=== PATIENT | female | born 1980 | race Caucasian/White ===

== ENCOUNTER 2017-02-25 14:23 | Emergency (ER) | payer BC ==
[~2017-02-25] VITALS: Ht 160 cm; Wt 120.3 kg
[~2017-02-25 14:23] MED LIST: ATIVAN1 MG PO; BENTYL10 MG PO; LORAZEPAM0.5 MG; LORAZEPAM0.5 MG PO; NOHOMEMEDS; PAXIL20 MG PO; PROTONIX40 MG PO; SERTRALINE HCL100 MG; SERTRALINE HCL100 MG PO
[2017-02-25 15:47] LABS: HEMATOCRIT 38.2 % (36.0-46.0); HEMOGLOBIN 12.9 G/DL (11.9-15.5); MCH 28.5 PG (29.0-34.0); MCHC 33.8 G/DL (30.0-36.0); MCV 84.3 FL (83-99); PLATELET COUNT 285 K/uL (156-360); RBC DIS.WIDTH-CV 13.1 % (11.8-14.6); RBC DIS.WIDTH-SD 40.2 % (39-53); RED BLOOD COUNT 4.53 M/uL (3.80-5.20); WHITE BLOOD COUNT 12.8 K/uL (4.1-10.2)
[2017-02-25 15:50] LABS: ALBUMIN 4.5 g/dL (3.2-4.8); CHLORIDE 104 mEq/L (99-109); POTASSIUM 4.2 mEq/L (3.7-5.4); SODIUM 138 mEq/L (136-147)
[2017-02-25 15:52] LABS: GLUCOSE 118 mg/dL (70-99); TOTAL PROTEIN 7.6 g/dL (6.4-8.3)
[2017-02-25 15:56] LABS: ALKALINE PHOSPHATASE 111 IU/L (3-129); CREATININE 0.8 mg/dL (0.6-1.3); GFR ESTIMATE (CALCULATED) > 59 mL/min/
[2017-02-25 15:57] LABS: AST (GOT) 408 IU/L (2-34); UREA NITROGEN (BUN) 10 mg/dL (9-23)
[2017-02-25 15:59] LABS: ALT (GPT) 237 IU/L (3-49); LIPASE 47 U/L (1.0-51.0)
[2017-02-25 16:06] LABS: QUANTITATIVE HCG < 4.0 MIU/ML
[2017-02-25 16:31] LABS: AMYLASE 36 IU/L (1-118)
[2017-02-25 16:46] LABS: APPEARANCE CLOUDY ((CLEAR)); BILIRUBIN NEGATIVE; BLOOD NEGATIVE; COLOR YELLOW ((YELLOW)); GLUCOSE (STRIP) NEGATIVE; KETONES NEGATIVE; LEUKOCYTES NEGATIVE; NITRITE NEGATIVE; PROTEIN (STRIP) NEGATIVE; SPECIFIC GRAVITY 1.013 (1.000-1.030); UROBILINOGEN 0.2 MG/DL (0.2-1.0)
[2017-02-25 16:53] LABS: BACTERIA RARE /HPF; EPITHELIAL CELLS RARE /HPF; MUCUS TRACE /LPF; RED BLOOD CELLS 0-5 /HPF (0-5); UCUL ADDED? NO; WHITE BLOOD CELLS 0-5 /HPF (0-5)
[2017-02-25] MEDS ORDERED: AUGMENTIN875 MG PO (19:30)
[2017-02-25] MEDS ORDERED: PERCOCET 5/31 TABLET PO (19:34)
[2017-02-25 19:43] VITALS: BP 135/80
== END 2017-02-25 19:44 | disposition home or self-care (01) ==
LOC: EME 14:23
DX: K80.20 Calculus of gallbladder without cholecystitis without obstruction (principal)
CPT/HCPCS: 76705; 80053; 81003; 82150; 83690; 84702; 85027; 99281; 99284; J1885

== ENCOUNTER 2017-03-19 10:39 | Emergency (ER) | payer BC ==
[~2017-03-19] VITALS: Ht 160 cm; Wt 111.9 kg
[~2017-03-19 10:39] MED LIST changes: +AUGMENTIN875 MG PO; +PERCOCET 5/31 TABLET PO
[2017-03-19 12:41] LABS: HEMATOCRIT 36.8 % (36.0-46.0); HEMOGLOBIN 12.7 G/DL (11.9-15.5); MCH 28.9 PG (29.0-34.0); MCHC 34.5 G/DL (30.0-36.0); MCV 83.8 FL (83-99); PLATELET COUNT 233 K/uL (156-360); RBC DIS.WIDTH-CV 13.3 % (11.8-14.6); RBC DIS.WIDTH-SD 40.9 % (39-53); RED BLOOD COUNT 4.39 M/uL (3.80-5.20); WHITE BLOOD COUNT 5.9 K/uL (4.1-10.2)
[2017-03-19 12:49] LABS: ALBUMIN 4.1 g/dL (3.2-4.8)
[2017-03-19 12:50] LABS: CHLORIDE 107 mEq/L (99-109); POTASSIUM 3.5 mEq/L (3.7-5.4); SODIUM 138 mEq/L (136-147)
[2017-03-19 12:52] LABS: GLUCOSE 91 mg/dL (70-99); TOTAL PROTEIN 7.2 g/dL (6.4-8.3)
[2017-03-19 12:54] LABS: TOTAL BILIRUBIN 0.6 mg/dL (0.0-1.0)
[2017-03-19 12:55] LABS: ALKALINE PHOSPHATASE 89 IU/L (3-129)
[2017-03-19 12:56] LABS: CREATININE 0.9 mg/dL (0.6-1.3); GFR ESTIMATE (CALCULATED) > 59 mL/min/
[2017-03-19 12:57] LABS: AST (GOT) 29 IU/L (2-34); UREA NITROGEN (BUN) 8 mg/dL (9-23)
[2017-03-19 12:58] LABS: ALT (GPT) 40 IU/L (3-49)
[2017-03-19 13:06] LABS: QUANTITATIVE HCG < 4.0 MIU/ML
[2017-03-19] MEDS ORDERED: ZOFRAN4 MG PO (13:13)
[2017-03-19] MEDS ORDERED: TAMIFLU75 MG PO (13:14)
[2017-03-19 13:21] LABS: LIPASE 218 U/L (1.0-51.0)
[2017-03-19] MEDS ORDERED: KEFLEX500 MG PO (13:31)
[2017-03-19 14:19] VITALS: BP 111/65
== END 2017-03-19 14:22 | disposition home or self-care (01) ==
LOC: EME 10:39
PROVIDERS: Emergency Medicine Emergency Medical Services
DX: J10.1 Influenza due to other identified influenza virus with other respiratory manifestations (principal); E86.0 Dehydration; R11.2 Nausea with vomiting, unspecified; R19.7 Diarrhea, unspecified; F32.9 Major depressive disorder, single episode, unspecified; F42.9 Obsessive-compulsive disorder, unspecified; Z98.84 Bariatric surgery status; Z90.49 Acquired absence of other specified parts of digestive tract
CPT/HCPCS: 80053; 83690; 84702; 85027; 87502; 93005; 99281; 99285; J2405; J7040